=== PATIENT | male | born 1960 | race African-American/Black ===

== ENCOUNTER 2017-10-11 16:46 | Inpatient (IN) | payer BC ==
[~2017-10-11] VITALS: Ht 180.3 cm; Wt 99.8 kg
[2017-10-11 18:00] VITALS: BP 166/91
[2017-10-11 18:17] LABS: BASOPHILS % 0.2 % (0.0-1.0); EOSINOPHILS # (AUTO) 0.1 (0.0-0.4); HEMATOCRIT 46.9 % (38.2-49.6); HEMOGLOBIN 16.3 g/dL (14.0-18.0); LYMPHOCYTES # (AUTO) 2.2 (1.0-3.2); LYMPHOCYTES % 22.7 % (18.0-39.1); MEAN CORPUSCULAR HEMOGLOBIN 28.7 pg (28-32); MEAN CORPUSCULAR HGB CONC 34.8 g/dL (31-35); MEAN CORPUSCULAR VOLUME 82.6 fL (81-99); MONOCYTES # (AUTO) 1.1 (0.2-0.8); MONOCYTES % 11.5 % (4.4-11.3); NEUTROPHILS # (AUTO) 6.3 (2.1-6.9); NEUTROPHILS % 64.3 % (38.7-80.0); PLATELET COUNT 156 x10e3/uL (140-360); RED BLOOD COUNT 5.68 x10e6/uL (4.3-5.7); RED CELL DISTRIBUTION WIDTH 13.2 % (11.7-14.4)
[2017-10-11 18:34] LABS: ALANINE AMINOTRANSFERASE 20 IU/L (0-55); ALBUMIN 4.5 g/dL (3.5-5.0); ALKALINE PHOSPHATASE 70 IU/L (40-150); ANION GAP 15.5 mmol/L (8-16); BLOOD UREA NITROGEN 12 mg/dL (7-26); BUN/CREATININE RATIO 9 (6-25); CARBON DIOXIDE 25 mmol/L (22-29); CHLORIDE 104 mmol/L (98-107); EST GLOMERULAR FILTRATION RATE > 60 ML/MIN (60-); GLUCOSE 86 mg/dL (74-118); POTASSIUM 3.5 mmol/L (3.5-5.1); SODIUM 141 mmol/L (136-145)
[2017-10-11 18:35] VITALS: BP 166/91
[2017-10-11 18:37] VITALS: BP 166/91
[2017-10-11 19:36] LABS: ERYTHROCYTE SEDIMENTATION RATE 8 mm/hr (0-13)
[2017-10-11] MEDS: HYDROCODONE/APAP 7.5MG-325MG 1 EA TAB PO PRN (19:41)
[2017-10-11] MEDS ORDERED: MEPERIDINE HCL INJ 50 MG/ML INJ IV ONE (19:45)
[2017-10-11 20:26] VITALS: BP 154/89
[2017-10-11] MEDS: WATER STERILE IV SCH (22:00)
[2017-10-11] MEDS: CLINDAMYCIN PHOS 900MG/ D5W 50 50 ML IV SCH (22:00)
[2017-10-11] MEDS: CEFTAZIDIME IV SCH (22:00)
[2017-10-12] VITALS (7 sets, daily range): BP systolic 138–163; BP diastolic 80–98
[2017-10-12] MEDS ORDERED: SODIUM CHLORIDE 0.9% 250ML 250 ML ONE (05:48)
[2017-10-12] MEDS: CLINDAMYCIN PHOS 900MG/ D5W 50 50 ML IV SCH ×3 (06:35→22:00)
[2017-10-12] MEDS: CEFTAZIDIME IV SCH (06:35)
[2017-10-12] MEDS: WATER STERILE IV SCH (06:35)
[2017-10-12] MEDS: HYDROCODONE/APAP 7.5MG-325MG 1 EA TAB PO PRN ×2 (06:39→17:01)
[2017-10-12] MEDS: CEFTAZIDIME 1 GM VIAL IV SCH ×2 (13:37→22:00)
--- NOTE | 2017-10-12 14:05 | History and Physical ---
HISTORY OF PRESENT ILLNESS: Mr. Dawson is a pleasant 56-year-old gentleman who follows up with Dr. Mak in infectious disease as an outpatient for the management of his HIV. He had reported to the office with swelling of the right mandible with 2 bad teeth that is obvious to the naked eye. His HIV status seems to be in control, therefore patient was transferred to [facility] in [place] for management of his possible right mandible abscess secondary to bad tooth. PAST MEDICAL HISTORY: Includes HIV which seems to be in control per my discussion with patient and Dr. Mak. Denied diabetes, hypertension, hyperlipidemia and any other medical history in the past. ALLERGIES: The patient has no allergies. LABORATORY STUDIES: Sodium 141, potassium 3.5, BUN 12, creatinine 1.3, white blood cell 9.8, platelet count 156, hemoglobin 16.3. RADIOLOGY STUDIES: CT of the face, neck is pending and cath placement is pending. MEDICATION LIST: Has been reviewed and patient is on Cleocin, ceftazidime and acetaminophen. REVIEW OF SYSTEMS: Complained of right mandibular pain still difficulty with chewing and he still feels the pressure. PHYSICAL EXAMINATION GENERAL: Alert, oriented in bed. Pleasant. No acute distress. VITAL SIGNS: Temperature 99.3, pulse 70, respirations 19, blood pressure 154/89. CV: S1, S2. CHEST: Equal expansion. Clear to auscultation. No acute distress. ABDOMEN: Soft, nontender, nondistended. Bowel sounds positive in 4 quadrants. HEENT: Moist. Normal appearing. NECK: No JVD. EXTREMITIES: Moves all extremities. No acute distress. ASSESSMENT AND PLAN: Michelle 56-year-old with a past medical history for human immunodeficiency virus, presented to the office complaining of swelling of the right mandible. Admitted to [facility] with CT scan. Continue with the ceftazidime and Cleocin. We will get a PICC line in him and we plan to give IV antibiotics as an outpatient when patient seems to be more stable and ready to be transferred for outpatient antibiotics. This case was discussed with Dr. Mak in detail. Dictated by: LEEROY Blankenship. Job#: [id number] DG
--- NOTE | 2017-10-12 18:39 | Diagnostic Imaging Report ---
Exams: Maxillofacial and neck CTs without IV contrast History: Evaluate abscess Comparison studies: None Technique: Axial, coronal and sagittal images from the skull base to the thoracic inlet. Coronal and sagittal images reconstructed from the axial data. Intravenous contrast: 100 cc of Omnipaque 300. Findings: Soft tissues: Reactive changes with soft tissue thickening, enhancement and reticulation of the fat within the right premandibular soft tissues compatible with cellulitis and phlegmon. Cellulitic changes extend inferiorly into the right submental soft tissues with associated reactive thickening of the right platysmas muscle. A 1.2 x 0.5 cm focal hypodensity with peripheral enhancement in the right premandibular mucogingival soft tissues adjacent to a carious right mandibular second premolar with apical lucency may reflect soft tissue abscess (series 3, image 66). Dentition: Multifocal dental caries with periapical lucencies at the right mandibular second premolar and remaining right first mandible molar. Multiple dental fillings and multiple absent teeth. Lymph nodes: No radiographically significant adenopathy. Vessels: Patent carotid and vertebral arteries. 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 Anatomical variant retropharyngeal course of the right internal carotid artery which abuts the posterior wall the oral pharynx. Glands (thyroid, parotid and submandibular): Normal in size and symmetric. No masses. Orbits: No abnormalities. Paranasal sinuses: Clear. Temporal bones: No gross abnormalities Skull base and facial bones: Intact. Cervical spine: Mildly degenerated C5-C6 disc. Small disc osteophyte complexes at C3-C4 and at C5-C6 indent the thecal sac without significant canal stenosis. Mild foraminal stenosis bilaterally at C3-C4 due to uncovertebral arthrosis. IMPRESSION: 1. Right premandibular facial cellulitis and phlegmon with likely small 1.2 cm abscess in the right mucogingival soft tissues which is likely odontogenic in origin in the context of an adjacent periapical abscess at the carious right first mandibular second premolar. Additional perirectal abscess at the carious right first molar. Recommend correlation with dental exam. 2. No other acute abnormalities. Signed by: Dr. Cezar Marcial M.D. on 10/12/2017 6:36 PM
[2017-10-13] MEDS: CLINDAMYCIN PHOS 900MG/ D5W 50 50 ML IV SCH (06:13)
[2017-10-13] MEDS: CEFTAZIDIME 1 GM VIAL IV SCH (06:13)
[2017-10-13] MEDS: HYDROCODONE/APAP 7.5MG-325MG 1 EA TAB PO PRN (06:23)
[2017-10-13 08:00] VITALS: BP 136/89
--- NOTE | 2017-10-13 10:49 | Discharge Summary ---
The patient is a pleasant 56-year-old gentleman whose is a patient of Dr. Miguelito Patel. He follows with Dr. Patel for management of his HIV. He was found to have a right mandibular abscess related to a bad tooth. Seen by a dentist and the plan is to get the infection under control before any dental procedure. The patient was admitted to [facility], status post PICC line placement. Started on IV antibiotics. White count 9.8, hemoglobin 16.3 and platelets 156,000. Creatinine was 1.3, sodium 141, potassium 3.5, BUN is 12. CT of the face was done and it shows right premandibular facial cellulitis and phlegmon with likely small 1.2-cm abscess right mid-gingival soft tissue, which is likely in origin in the context of an adjacent periapical abscess at the carious right 1st mandibular, 2 premolar. Additional abscess at the 1st right molar. Also, CT of the head and neck was done. There are no microbiology studies available at this point. The patient was treated with ceftazidime and clindamycin. At this point, the patient is status post PICC line and in fair stable condition. The plan is to discharge most likely today, which is October 13, 2017. He has an appointment at Dr. Miguelito Patel's office for IV antibiotics. DISCHARGE CONDITION: Fair and stable. No acute distress. Plan to follow up with Dr. Miguelito Patel. DICTATED BY LEEROY CESAR MIGUELITO PATEL MD Job#: [id number] [facility]
== END 2017-10-13 10:58 | disposition home or self-care (01) | DRG 977 ==
LOC: MED/SURG2 17:17
PROVIDERS: ADMIT Internal Medicine Infectious Disease; ATTEND Internal Medicine Infectious Disease
PROC: 02HV33Z Insertion of Infusion Device into Superior Vena Cava, Percutaneous Approach (ICD-10-PCS; principal; 2017-10-11)
DX: B20 Human immunodeficiency virus [HIV] disease (principal); K04.7 Periapical abscess without sinus
CPT/HCPCS: 36415; 36568; 70487; 70491; 80053; 85025; 85651; 86140; J0713; J2175; J7050

== ENCOUNTER → 2017-10-11 | Emergency (ER) | payer BC ==
[~2017-10-11] VITALS: Ht 180.3 cm; Wt 99.8 kg
[~2017-10-11] MED LIST: IOPAMIDOL 370 MG/ML 200 ML INFUS..BTL INJ ONE; SODIUM CHLORIDE 0.9% 50ML 50 ML ONE
== END | disposition left against medical advice (07) ==
LOC: ER 13:39
DX: L02.818 Cutaneous abscess of other sites (principal)